=== PATIENT | male | born 1995 | race Caucasian/White ===

== ENCOUNTER → 2016-12-21 | Outpatient (CLI) | payer BC ==
--- NOTE | 2016-12-21 14:58 | DIAGNOSTIC IMAGING REPORT ---
RIGHT KNEE 4 OR MORE CLINICAL HISTORY: RIGHT KNEE PAIN S/P TWISTING INJURY Right trauma. Pain. COMPARISON: None. DISCUSSION: The bones and joint spaces appear intact. There is no evidence of fracture, dislocation or bony disease. There is no evidence for soft tissue swelling. IMPRESSION: Negative study. Electronically signed by: Quentin Oates M.D. 12/21/2016 2:56 PM Dictated Date/Time: 12/21/2016 2:55 PM
== END | disposition home or self-care (01) ==
LOC: C.RDSM 14:45
PROVIDERS: ATTEND Family Medicine
DX: M25.561 Pain in right knee (principal)

== ENCOUNTER → 2016-12-24 | Outpatient (CLI) | payer BC ==
--- NOTE | 2016-12-24 08:26 | DIAGNOSTIC IMAGING REPORT ---
MRI right knee RIGHT LOWER EXT JOINT WITHOUT CLINICAL HISTORY: R KNEE INJURY Right trauma. Pain. TECHNIQUE: Multiaxial MRI acquisition COMPARISON STUDY: None FINDINGS: Signal characteristics the osseous structures appear uniform. Small joint effusion. No significant popliteal cyst. High-grade partial tear anterior cruciate ligament. Posterior cruciate ligament is intact. Evaluation of menisci show unremarkable meniscal signal character. No evidence for meniscal tear. Collateral ligament structures are intact. Medial and lateral patellar retinaculum are intact. Several synechiae of the suprapatellar bursal region. IMPRESSION: 1. High-grade partial and/or near complete tear anterior cruciate ligament.. 2. Small joint effusion. 3. Several synechiae of the suprapatellar bursa Electronically signed by: Quentin Oates M.D. 12/24/2016 8:25 AM Dictated Date/Time: 12/24/2016 8:19 AM
== END | disposition home or self-care (01) ==
LOC: C.MRIBC 07:07
PROVIDERS: ATTEND Family Medicine
DX: S89.91XA Unspecified injury of right lower leg, initial encounter (principal); X58.XXXA Exposure to other specified factors, initial encounter; M71.861 Other specified bursopathies, right knee